=== PATIENT | female | born 1970 | race Caucasian/White ===

== ENCOUNTER 2017-07-02 13:15 | Emergency (ER) | payer MEDICAID ==
[~2017-07-02] VITALS: Ht 165.1 cm; Wt 102.1 kg
[~2017-07-02 13:15] MED LIST: ATIVAN; ZOLOFT; ZYPREXA
[2017-07-02 14:09] VITALS: BP 143/82
[2017-07-02] MEDS ORDERED: KETOROLAC TROMETH 60MG/2ML VIAL IM ONE (16:30)
[2017-07-02] MEDS ORDERED: HYDROcodone-ACET 10/325MG TAB PO ONE (16:30)
[2017-07-02] MEDS ORDERED: IPRATROPIUM BROM 0.5 MG/2.5ML INH SOL NEB ONE (16:45)
[2017-07-02] MEDS ORDERED: ALBUTEROL SULF 2.5 MG/0.5ML(0.5%) NEB SOLN NEB ONE (16:45)
== END 2017-07-02 17:20 | disposition home or self-care (01) ==
LOC: ER 13:15
DX: S22.31XA Fracture of one rib, right side, initial encounter for closed fracture (principal); R06.02 Shortness of breath; F12.10 Cannabis abuse, uncomplicated; F17.210 Nicotine dependence, cigarettes, uncomplicated; Z88.0 Allergy status to penicillin; V00.131A Fall from skateboard, initial encounter; Y93.89 Activity, other specified; Y92.89 Other specified places as the place of occurrence of the external cause; Y99.8 Other external cause status
CPT/HCPCS: 71101; 94640; 96372; 99284; J1885